=== PATIENT | male | born 1980 | race Caucasian/White ===

== ENCOUNTER 2017-01-03 20:24 | Emergency (ER) | payer SELFPAY ==
[~2017-01-03] VITALS: Ht 182.9 cm; Wt 104.0 kg
[2017-01-03 20:46] VITALS: BP 199/119
== END 2017-01-03 23:30 | disposition left against medical advice (07) ==
LOC: ER 20:24
DX: Z48.00 Encounter for change or removal of nonsurgical wound dressing (principal); Z53.21 Procedure and treatment not carried out due to patient leaving prior to being seen by health care provider

== ENCOUNTER 2017-12-03 12:33 | Inpatient (IN) | payer SELFPAY ==
[~2017-12-03] VITALS: Ht 165.1 cm; Wt 79.8 kg
[2017-12-03 15:16] LABS: CHLORIDE 94 mEq/L (98-107)
[2017-12-03 15:17] LABS: HEMATOCRIT. 40.2 % (42.0-52.0); HEMOGLOBIN. 13.5 g/dL (14.0-18.0); MEAN CORPUSCULAR HEMOGLOBIN 29.8 pg (28.0-32.0); MEAN CORPUSCULAR VOLUME 89.1 fL (80.0-94.0); MEAN PLATELET VOLUME 9.2 fl (7.4-10.4); PLATELET 229 x1000/uL (130-400); RED BLOOD CELL COUNT 4.52 mill/uL (4.7-6.1); RED CELL DISTRIBUTION WIDTH 14.8 % (11.6-14.6)
[2017-12-03 15:18] LABS: INR 0.9; PROTHROMBIN TIME 9.8 sec (9.4-11.6)
[2017-12-03] MEDS ORDERED: FUROSEMIDE 100MG/10ML VIAL IV STA (15:28)
[2017-12-03] MEDS ORDERED: ALBUTEROL (0.083%) 2.5MG/3ML NEB HHN ONE (15:30)
[2017-12-03] MEDS ORDERED: DEXTROSE 50% WATER 50ML SYRINGE IV ONE (15:30)
[2017-12-03] MEDS ORDERED: LORAZEPAM 2MG/ML CPJ IV ONE (15:30)
[2017-12-03] MEDS ORDERED: SODIUM POLYSTYRENE SULFONATE 15 G/60 ML BOT PO ONE (15:30)
[2017-12-03] MEDS ORDERED: INSULIN REGULAR (HUMULIN R) 300UNITS/3ML IV ONE (15:30)
[2017-12-03] MEDS ORDERED: SODIUM BICARBONATE 8.4% 1 MEQ/ML 50ML SYR IV ONE (15:30)
[2017-12-03] MEDS ORDERED: CALCIUM CHLORIDE 1GM/10ML SYR IV ONE (15:30)
[2017-12-03 16:16] LABS: PLATELET ESTIMATE NORMAL
[2017-12-03] MEDS ORDERED: VANCOMYCIN 1 G PREMIX 200 ML IV ONE ×2 (16:45→17:30)
[2017-12-03] MEDS ORDERED: PIPERACILLIN/TAZ 3.375G PREMIX 50 ML IV ONE ×2 (16:45→17:30)
[2017-12-03] MEDS ORDERED: NIFEDIPINE XL 30MG TAB PO ONE ×2 (17:15→17:30)
[2017-12-03] MEDS: INSULIN LISPRO 100 UNITS/ML SUBCUT SCH ×2 (18:20→21:00)
[2017-12-03 18:24] VITALS: BP 144/61
[2017-12-03] MEDS ORDERED: ONDANSETRON HCL 4MG/2ML VIAL IV PRN ×2 (18:30→19:30)
[2017-12-03] MEDS ORDERED: METOCLOPRAMIDE HCL 5MG TABLET PO PRN (18:30)
[2017-12-03] MEDS ORDERED: HYDRALAZINE 20MG/ML VIAL IV PRN (18:30)
[2017-12-03] MEDS ORDERED: DEXTROSE 50% WATER 50ML SYRINGE IV PRN ×2 (18:30→19:30)
[2017-12-03] MEDS ORDERED: BACL-141 PO (19:01)
[2017-12-03] MEDS ORDERED: NIFE30TA83 PO (19:01)
[2017-12-03] MEDS ORDERED: GABA100C PO (19:01)
[2017-12-03] MEDS ORDERED: TRAM50TA94 PO (19:01)
[2017-12-03] MEDS ORDERED: ALPR0.5T4 MT (19:01)
[2017-12-03] MEDS: PANTOPRAZOLE SODIUM 40 MG/VIAL IV SCH (19:25)
[2017-12-03] MEDS ORDERED: DIPHENHYDRAMINE 50MG/ML VIAL IV PRN ×2 (19:30→21:00)
[2017-12-03] MEDS ORDERED: TRAMADOL 50MG TABLET PO PRN (19:30)
[2017-12-03] MEDS ORDERED: IPRATROPIUM/ALBUTEROL 0.5-3(2.5)MG/3ML NEB INH PRN (19:30)
[2017-12-03] MEDS ORDERED: CLONIDINE 0.1MG TABLET PO PRN (19:30)
[2017-12-03] MEDS ORDERED: ACETAMINOPHEN 325MG TABLET PO PRN (19:30)
[2017-12-03 20:04] VITALS: BP 146/94
[2017-12-03] MEDS ORDERED: INSULIN LISPRO 100 UNITS/ML SUBCUT SCH (21:00)
[2017-12-03] MEDS ORDERED: ZOLPIDEM TARTRATE 5MG TABLET PO PRN (21:00)
[2017-12-03] MEDS ORDERED: BLOOD SUGAR DIAGNOSTIC STRIP TEST SCH (21:00)
[2017-12-03] MEDS: BLOOD SUGAR DIAGNOSTIC STRIP TEST SCH (21:00)
[2017-12-03 22:00] VITALS: BP 137/72
[2017-12-03] MEDS: SODIUM CHLORIDE 0.9% INJ 3ML FLUSH IVF SCH (22:00)
[2017-12-03] MEDS: LORAZEPAM 0.5MG TABLET PO PRN (23:03)
[2017-12-04] VITALS (12 sets, daily range): BP systolic 116–173; BP diastolic 77–108
[2017-12-04] MEDS: SODIUM CHLORIDE 0.9% INJ 3ML FLUSH IVF SCH ×2 (05:29→14:00)
[2017-12-04] MEDS: BLOOD SUGAR DIAGNOSTIC STRIP TEST SCH ×3 (05:52→17:11)
[2017-12-04 06:26] LABS: BASOPHILS % 1.2 % (0.0-2.0); EOSINOPHILS % 1.2 % (0.0-5.0); HEMATOCRIT. 39.2 % (42.0-52.0); HEMOGLOBIN. 12.9 g/dL (14.0-18.0); LYMPHOCYTES % 11.8 % (20.0-50.0); MEAN CORPUSCULAR HEMOGLOBIN 29.4 pg (28.0-32.0); MEAN CORPUSCULAR VOLUME 89.4 fL (80.0-94.0); MEAN PLATELET VOLUME 9.3 fl (7.4-10.4); MONOCYTES % 5.7 % (2.0-8.0); NEUTROPHILS % 80.1 % (40.0-76.0); PLATELET 215 x1000/uL (130-400); RED BLOOD CELL COUNT 4.38 mill/uL (4.7-6.1); RED CELL DISTRIBUTION WIDTH 14.7 % (11.6-14.6)
[2017-12-04 06:44] LABS: CHLORIDE 93 mEq/L (98-107)
[2017-12-04] MEDS: INSULIN LISPRO 100 UNITS/ML SUBCUT SCH ×3 (06:50→17:20)
[2017-12-04 06:56] LABS: PHOSPHORUS 6.4 mg/dL (2.5-4.9)
[2017-12-04] MEDS: PANTOPRAZOLE SODIUM 40 MG/VIAL IV SCH (08:33)
[2017-12-04] MEDS ORDERED: NIFEDIPINE XL 30MG TAB PO SCH (09:00)
[2017-12-04] MEDS: LORAZEPAM 0.5MG TABLET PO PRN (17:43)
== END 2017-12-04 19:50 | disposition home or self-care (01) | DRG 425 ==
LOC: ER 12:35 → ENRESERV 16:31 → 3WST 16:33 → EDBEDREQ 16:36 → EDBEDREQTM 16:36
PROVIDERS: ADMIT Internal Medicine; ATTEND Internal Medicine
PROC: 5A1D70Z Performance of Urinary Filtration, Intermittent, Less than 6 Hours Per Day (ICD-10-PCS; principal; 2017-12-03)
DX: E87.5 Hyperkalemia (principal); G92 Toxic encephalopathy; N25.81 Secondary hyperparathyroidism of renal origin; E87.0 Hyperosmolality and hypernatremia; I12.0 Hypertensive chronic kidney disease with stage 5 chronic kidney disease or end stage renal disease; N18.6 End stage renal disease; D64.9 Anemia, unspecified; D72.829 Elevated white blood cell count, unspecified; G89.29 Other chronic pain; E11.22 Type 2 diabetes mellitus with diabetic chronic kidney disease; E83.39 Other disorders of phosphorus metabolism; E11.65 Type 2 diabetes mellitus with hyperglycemia; E87.1 Hypo-osmolality and hyponatremia; F41.1 Generalized anxiety disorder; Z82.3 Family history of stroke; Z82.49 Family history of ischemic heart disease and other diseases of the circulatory system; Z99.2 Dependence on renal dialysis; Z83.3 Family history of diabetes mellitus; Z79.899 Other long term (current) drug therapy
CPT/HCPCS: 36415; 71045; 80053; 82962; 83605; 84100; 85025; 85610; 87040; 93005; 93970; 96374; 96375; 99291; C9113; J1200; J1815; J1940; J2060; J2543; J3370; J3490; J7030

== ENCOUNTER 2018-07-16 09:50 | Inpatient (IN) | payer BC ==
[2018-07-16] VITALS (29 sets, daily range): BP systolic 79–176; BP diastolic 40–128
[~2018-07-16] VITALS: Ht 175.3 cm; Wt 110.2 kg
[~2018-07-16 09:50] MED LIST: ALPR0.5T4 MT; GABA100C PO; NIFE30TA83 PO; TRAM50TA94 PO
[2018-07-16 10:20] LABS: BASOPHILS % 0.9 % (0.0-2.0); EOSINOPHILS % 12.8 % (0.0-5.0); HEMATOCRIT. 38.9 % (42.0-52.0); HEMOGLOBIN. 13.1 g/dL (14.0-18.0); LYMPHOCYTES % 27.2 % (20.0-50.0); MEAN CORPUSCULAR HEMOGLOBIN 30.6 pg (28.0-32.0); MEAN CORPUSCULAR VOLUME 91.1 fL (80.0-94.0); MEAN PLATELET VOLUME 7.9 fl (7.4-10.4); NEUTROPHILS % 52.1 % (40.0-76.0); PLATELET 272 x1000/uL (130-400); RED BLOOD CELL COUNT 4.27 mill/uL (4.7-6.1); RED CELL DISTRIBUTION WIDTH 15.4 % (11.6-14.6)
[2018-07-16 10:24] LABS: CHLORIDE 102 mEq/L (98-107)
[2018-07-16 10:25] LABS: PROTHROMBIN TIME 10.3 sec (9.1-11.1)
[2018-07-16 10:28] LABS: ETHANOL BLOOD < 10 mg/dL
[2018-07-16 10:31] LABS: LDL CHOLESTEROL 103 mg/dL (5-100)
[2018-07-16] MEDS ORDERED: LABETALOL 5MG/ML SYR 20 MG/4 ML SYRINGE IV ONE (10:45)
[2018-07-16] MEDS ORDERED: ETOMIDATE 2MG/ML 10ML VIAL IV ONE (10:45)
[2018-07-16] MEDS ORDERED: PROPOFOL 10MG/ML 100ML 100 ML IV ONE (10:45)
[2018-07-16] MEDS ORDERED: SUCCINYLCHOLINE CHLORIDE 200MG/10ML IV ONE (10:45)
[2018-07-16 11:21] LABS: CLARITY URINE CLEAR (CLEAR); COLOR URINE YELLOW (YELLOW); KETONES URINE NEGATIVE (NEGATIVE); LEUKOCYTE ESTERASE URINE NEGATIVE (NEGATIVE); NITRITE URINE NEGATIVE (NEGATIVE); OCCULT BLOOD URINE TRACE (NEGATIVE); PH URINE 7.5 (4.5-8.0); PROTEIN URINE 2+ (NEGATIVE); SPECIFIC GRAVITY URINE 1.009 (1.005-1.030); UROBILINOGEN URINE 0.2 E.U./dL (0.2-1.0)
[2018-07-16 11:38] LABS: *AMPHETAMINES SCREEN URINE NEGATIVE (NEGATIVE); *BARBITURATES SCREEN URINE NEGATIVE (NEGATIVE); *BENZODIAZEPINES SCREEN URINE NEGATIVE (NEGATIVE); *COCAINE SCREEN URINE NEGATIVE (NEGATIVE); METHADONE URINE SCREEN NEGATIVE (NEGATIVE); OPIATES URINE SCREEN NEGATIVE (NEGATIVE)
[2018-07-16 11:39] LABS: CANNABINOID URINE SCREEN NEGATIVE (NEGATIVE); PHENCYCLIDINE URINE SCREEN NEGATIVE (NEGATIVE)
[2018-07-16] MEDS ORDERED: NICARDIPINE 40MG/200ML PREMIX 200 ML IV ONE (11:54)
[2018-07-16] MEDS ORDERED: ACETAMINOPHEN 650MG SUPP PR PRN ×2 (12:00→16:15)
[2018-07-16] MEDS ORDERED: IPRATROPIUM/ALBUTEROL 0.5-3(2.5)MG/3ML NEB INH PRN ×2 (12:00→16:15)
[2018-07-16] MEDS ORDERED: ONDANSETRON HCL 4MG/2ML INJ IV PRN (12:00)
[2018-07-16] MEDS ORDERED: DOCUSATE SODIUM 100MG CAPSULE PO PRN (12:00)
[2018-07-16] MEDS ORDERED: NICARDIPINE 100 MG in SODIUM CHLORIDE 0.9% 60 ML IV PRN ×2 (12:00→17:15)
[2018-07-16 12:16] LABS: BG BASE EXCESS -1.1 mmol/L (-2.0-2.0); BG CARBOXYHEMOGLOBIN 0.3 % (0.5-1.5); BG DEOXYHEMOGLOBIN 1.1 % (0.0-5.0); BG FRACTION INSPIRED OXYGEN 100; BG HCO3 ACT 23.9 mmol/L (22.0-26.0); BG METHEMOGLOBIN 0.3 % (0.0-1.5); BG OXYGEN SATURATION 98.9 % (92.0-98.5); BG OXYHEMOGLOBIN 98.3 % (94.0-97.0); BG PCO2 41.1 mmHg (35.0-45.0); BG PH 7.383 (7.350-7.450); BG PO2 314.9 mmHg (75.0-100.0); BG SAMPLE SITE RIGHT RADIAL; BG TIDAL VOLUME(mL) 500 mL; BG TOTAL HEMOGLOBIN 12.5 g/dL (12.0-18.0); BG VENT MODE VENT - A/C; BG VENT RATE 16 set
[2018-07-16] MEDS ORDERED: DEXTROSE 50% WATER 50ML SYRINGE IV PRN (16:15)
[2018-07-16] MEDS ORDERED: GUAIFENESIN 200MG/10ML SUGAR FREE UDC PO PRN (16:15)
[2018-07-16] MEDS: DEXT 5%/LACTATED RINGERS 1,000 ML IV SCH (17:27)
[2018-07-16] MEDS: INSULIN LISPRO 100 UNITS/ML SUBCUT SCH (17:52)
[2018-07-16] MEDS: BLOOD SUGAR DIAGNOSTIC STRIP TEST SCH (17:52)
[2018-07-16] MEDS: DEXAMETHASONE 10 MG/ML VIAL IV SCH (17:53)
[2018-07-16] MEDS: PIPERACILLIN/TAZ 2.25G PREMIX 50 ML IV SCH (18:30)
[2018-07-16] MEDS ORDERED: VANCOMYCIN 1500MG in DEXTROSE 5% WATER 250ML IV NR (20:00)
[2018-07-16] MEDS: IPRATROPIUM/ALBUTEROL 0.5-3(2.5)MG/3ML NEB INH SCH (20:16)
[2018-07-16] MEDS: LEVETIRACETAM 500 MG in SODIUM CHLORIDE 0.9% 100 ML IV SCH (20:53)
[2018-07-16] MEDS: NICARDIPINE 100 MG in SODIUM CHLORIDE 0.9% 60 ML IV PRN (22:23)
[2018-07-16 23:39] LABS: BG BASE EXCESS -1.6 mmol/L (-2.0-2.0); BG CARBOXYHEMOGLOBIN 0.5 % (0.5-1.5); BG DEOXYHEMOGLOBIN 4.8 % (0.0-5.0); BG FRACTION INSPIRED OXYGEN 40; BG HCO3 ACT 23.9 mmol/L (22.0-26.0); BG METHEMOGLOBIN 0.3 % (0.0-1.5); BG OXYGEN SATURATION 95.2 % (92.0-98.5); BG OXYHEMOGLOBIN 94.4 % (94.0-97.0); BG PCO2 42.9 mmHg (35.0-45.0); BG PH 7.363 (7.350-7.450); BG PO2 77.5 mmHg (75.0-100.0); BG SAMPLE SITE RIGHT BRACHIAL; BG TIDAL VOLUME(mL) 500 mL; BG TOTAL HEMOGLOBIN 12.7 g/dL (12.0-18.0); BG VENT MODE VENT - A/C; BG VENT RATE 16 set
[2018-07-17] VITALS (81 sets, daily range): BP systolic 105–138; BP diastolic 47–85
[2018-07-17] MEDS: BLOOD SUGAR DIAGNOSTIC STRIP TEST SCH ×5 (00:11→23:31)
[2018-07-17] MEDS: DEXAMETHASONE 10 MG/ML VIAL IV SCH ×5 (00:24→23:40)
[2018-07-17] MEDS: INSULIN LISPRO 100 UNITS/ML SUBCUT SCH ×5 (00:24→23:39)
[2018-07-17] MEDS: IPRATROPIUM/ALBUTEROL 0.5-3(2.5)MG/3ML NEB INH SCH ×4 (01:58→20:41)
[2018-07-17 05:26] LABS: CHLORIDE 100 mEq/L (98-107)
[2018-07-17 05:28] LABS: HEMATOCRIT. 38.3 % (42.0-52.0); HEMOGLOBIN. 12.6 g/dL (14.0-18.0); MEAN CORPUSCULAR HEMOGLOBIN 30.2 pg (28.0-32.0); MEAN CORPUSCULAR VOLUME 91.3 fL (80.0-94.0); MEAN PLATELET VOLUME 8.5 fl (7.4-10.4); PLATELET 269 x1000/uL (130-400); RED BLOOD CELL COUNT 4.19 mill/uL (4.7-6.1); RED CELL DISTRIBUTION WIDTH 15.6 % (11.6-14.6)
[2018-07-17 05:34] LABS: LDL CHOLESTEROL 102 mg/dL (5-100)
[2018-07-17 05:35] LABS: HDL CHOLESTEROL 52 mg/dL (40-59); T4 FREE 0.87 ng/dL (0.76-1.46)
[2018-07-17] MEDS: PIPERACILLIN/TAZ 2.25G PREMIX 50 ML IV SCH ×2 (06:51→19:01)
[2018-07-17 07:56] LABS: BG BASE EXCESS -3.3 mmol/L (-2.0-2.0); BG CARBOXYHEMOGLOBIN 0.8 % (0.5-1.5); BG DEOXYHEMOGLOBIN 3.8 % (0.0-5.0); BG HCO3 ACT 21.9 mmol/L (22.0-26.0); BG METHEMOGLOBIN 0.3 % (0.0-1.5); BG OXYGEN SATURATION 96.2 % (92.0-98.5); BG OXYHEMOGLOBIN 95.1 % (94.0-97.0); BG PCO2 39.6 mmHg (35.0-45.0); BG SAMPLE SITE RIGHT RADIAL; BG TIDAL VOLUME(mL) 500 mL; BG TOTAL HEMOGLOBIN 12.7 g/dL (12.0-18.0); BG VENT MODE VENT - A/C; BG VENT RATE 16 set
[2018-07-17] MEDS ORDERED: FURO-151 MT (08:16)
[2018-07-17] MEDS ORDERED: GLIP5TAB12 MT (08:16)
[2018-07-17] MEDS ORDERED: CALC667C MT (08:16)
[2018-07-17 08:29] LABS: PLATELET ESTIMATE NORMAL
[2018-07-17] MEDS: LEVETIRACETAM 500 MG in SODIUM CHLORIDE 0.9% 100 ML IV SCH ×3 (09:22→20:54)
[2018-07-17] MEDS: PANTOPRAZOLE SODIUM 40 MG/VIAL IV SCH (09:22)
[2018-07-17] MEDS: NICARDIPINE 100 MG in SODIUM CHLORIDE 0.9% 60 ML IV PRN ×2 (09:45→23:22)
[2018-07-17] MEDS ORDERED: VANCOMYCIN 500 MG PREMIX 100 ML IV SCH (10:00)
[2018-07-17] MEDS ORDERED: LIDOCAINE HCL/PF 1% 2ML VIAL ONE (10:56)
[2018-07-17] MEDS: DEXT 5%/LACTATED RINGERS 1,000 ML IV SCH (11:57)
[2018-07-17] MEDS: MORPHINE SULFATE 4 MG/ML CPJ (NOT FOR IM USE) IV PRN (13:29)
[2018-07-17] MEDS ORDERED: MORPHINE SULFATE 10 MG/ML CPJ IV NR (14:15)
[2018-07-17] MEDS ORDERED: PIPERACILLIN/TAZ 2.25G PREMIX 50 ML IV SCH (18:00)
[2018-07-18] VITALS (89 sets, daily range): BP systolic 114–142; BP diastolic 53–92
[2018-07-18] MEDS: IPRATROPIUM/ALBUTEROL 0.5-3(2.5)MG/3ML NEB INH SCH ×4 (01:13→20:57)
[2018-07-18] MEDS: DEXAMETHASONE 10 MG/ML VIAL IV SCH ×4 (06:02→23:34)
[2018-07-18] MEDS: BLOOD SUGAR DIAGNOSTIC STRIP TEST SCH ×4 (06:03→23:34)
[2018-07-18] MEDS: LEVETIRACETAM 500 MG in SODIUM CHLORIDE 0.9% 100 ML IV SCH ×2 (06:03→20:41)
[2018-07-18] MEDS: INSULIN LISPRO 100 UNITS/ML SUBCUT SCH ×4 (06:26→23:39)
[2018-07-18] MEDS: PIPERACILLIN/TAZ 2.25G PREMIX 50 ML IV SCH ×2 (07:03→18:22)
[2018-07-18] MEDS: PANTOPRAZOLE SODIUM 40 MG/VIAL IV SCH (11:44)
[2018-07-18] MEDS: DEXT 5%/LACTATED RINGERS 1,000 ML IV SCH (11:45)
[2018-07-18] MEDS ORDERED: INSULIN GLARGINE UD 100 UNITS/ML SYR SUBCUT NR (13:30)
[2018-07-18 13:47] LABS: HEMATOCRIT 35.2 % (42.0-52.0); HEMOGLOBIN 11.8 g/dL (14.0-18.0); MEAN CORPUSCULAR HEMOGLOBIN 30.6 pg (28.0-32.0); MEAN CORPUSCULAR VOLUME 91.4 fL (80.0-94.0); PLATELET 271 x1000/uL (130-400); RED BLOOD CELL COUNT 3.85 mill/uL (4.7-6.1); RED CELL DISTRIBUTION WIDTH 15.5 % (11.6-14.6)
[2018-07-18] MEDS: NICARDIPINE 100 MG in SODIUM CHLORIDE 0.9% 60 ML IV PRN (15:35)
[2018-07-19] VITALS (89 sets, daily range): BP systolic 58–141; BP diastolic 32–76
[2018-07-19] MEDS: NICARDIPINE 100 MG in SODIUM CHLORIDE 0.9% 60 ML IV PRN ×2 (01:23→11:21)
[2018-07-19] MEDS: IPRATROPIUM/ALBUTEROL 0.5-3(2.5)MG/3ML NEB INH SCH ×4 (01:58→20:52)
[2018-07-19] MEDS: BLOOD SUGAR DIAGNOSTIC STRIP TEST SCH ×3 (06:20→18:17)
[2018-07-19] MEDS: INSULIN LISPRO 100 UNITS/ML SUBCUT SCH ×3 (06:25→18:17)
[2018-07-19] MEDS: DEXAMETHASONE 10 MG/ML VIAL IV SCH ×2 (06:25→12:56)
[2018-07-19] MEDS: PIPERACILLIN/TAZ 2.25G PREMIX 50 ML IV SCH ×2 (06:25→18:17)
[2018-07-19 06:26] LABS: HEMATOCRIT 35.8 % (42.0-52.0); HEMOGLOBIN 11.7 g/dL (14.0-18.0); MEAN CORPUSCULAR HEMOGLOBIN 30.1 pg (28.0-32.0); MEAN CORPUSCULAR VOLUME 92.3 fL (80.0-94.0); PLATELET 291 x1000/uL (130-400); RED BLOOD CELL COUNT 3.88 mill/uL (4.7-6.1); RED CELL DISTRIBUTION WIDTH 15.5 % (11.6-14.6)
[2018-07-19] MEDS: DEXT 5%/LACTATED RINGERS 1,000 ML IV SCH ×2 (06:26→20:58)
[2018-07-19] MEDS: LEVETIRACETAM 500 MG in SODIUM CHLORIDE 0.9% 100 ML IV SCH ×2 (11:20→20:57)
[2018-07-19] MEDS: PANTOPRAZOLE SODIUM 40 MG/VIAL IV SCH (11:20)
[2018-07-19] MEDS: INSULIN GLARGINE UD 100 UNITS/ML SYR SUBCUT SCH (11:22)
[2018-07-19] MEDS: DEXAMETHASONE 4MG/ML 1ML VIAL IV SCH (18:40)
[2018-07-20] VITALS (99 sets, daily range): BP systolic 113–157; BP diastolic 52–94
[2018-07-20] MEDS: DEXAMETHASONE 4MG/ML 1ML VIAL IV SCH ×3 (00:09→18:30)
[2018-07-20] MEDS: BLOOD SUGAR DIAGNOSTIC STRIP TEST SCH ×7 (00:11→23:17)
[2018-07-20] MEDS: INSULIN LISPRO 100 UNITS/ML SUBCUT SCH ×5 (00:11→23:19)
[2018-07-20] MEDS: IPRATROPIUM/ALBUTEROL 0.5-3(2.5)MG/3ML NEB INH SCH ×4 (01:56→20:29)
[2018-07-20] MEDS: DEXT 5%/LACTATED RINGERS 1,000 ML IV SCH ×2 (05:03→21:09)
[2018-07-20 05:55] LABS: HEMOGLOBIN. 11.7 g/dL (14.0-18.0); MEAN CORPUSCULAR HEMOGLOBIN 30.2 pg (28.0-32.0); MEAN CORPUSCULAR VOLUME 90.5 fL (80.0-94.0); MEAN PLATELET VOLUME 9.4 fl (7.4-10.4); PLATELET 281 x1000/uL (130-400); RED BLOOD CELL COUNT 3.86 mill/uL (4.7-6.1); RED CELL DISTRIBUTION WIDTH 14.8 % (11.6-14.6)
[2018-07-20] MEDS: PIPERACILLIN/TAZ 2.25G PREMIX 50 ML IV SCH ×2 (06:00→18:29)
[2018-07-20 08:43] LABS: PLATELET ESTIMATE NORMAL
[2018-07-20] MEDS: LEVETIRACETAM 500 MG in SODIUM CHLORIDE 0.9% 100 ML IV SCH ×2 (09:50→21:09)
[2018-07-20] MEDS: PANTOPRAZOLE SODIUM 40 MG/VIAL IV SCH (09:50)
[2018-07-20] MEDS: INSULIN GLARGINE UD 100 UNITS/ML SYR SUBCUT SCH ×2 (09:50→21:12)
[2018-07-20] MEDS ORDERED: DEXTROSE 50% WATER 50ML SYRINGE IV PRN (11:30)
[2018-07-20] MEDS: NICARDIPINE 100 MG in SODIUM CHLORIDE 0.9% 60 ML IV PRN (14:32)
[2018-07-21] VITALS (96 sets, daily range): BP systolic 99–161; BP diastolic 56–85
[2018-07-21] MEDS: IPRATROPIUM/ALBUTEROL 0.5-3(2.5)MG/3ML NEB INH SCH ×4 (02:03→20:12)
[2018-07-21] MEDS: BLOOD SUGAR DIAGNOSTIC STRIP TEST SCH ×3 (05:48→18:00)
[2018-07-21] MEDS: DEXAMETHASONE 4MG/ML 1ML VIAL IV SCH ×2 (05:48→11:57)
[2018-07-21 05:50] LABS: HEMATOCRIT 34.6 % (42.0-52.0); HEMOGLOBIN 11.5 g/dL (14.0-18.0); MEAN CORPUSCULAR HEMOGLOBIN 30.3 pg (28.0-32.0); MEAN CORPUSCULAR VOLUME 91.1 fL (80.0-94.0); PLATELET 291 x1000/uL (130-400); RED BLOOD CELL COUNT 3.79 mill/uL (4.7-6.1)
[2018-07-21] MEDS: PIPERACILLIN/TAZ 2.25G PREMIX 50 ML IV SCH (06:08)
[2018-07-21] MEDS: INSULIN LISPRO 100 UNITS/ML SUBCUT SCH ×3 (06:09→19:13)
[2018-07-21] MEDS: NICARDIPINE 100 MG in SODIUM CHLORIDE 0.9% 60 ML IV PRN ×2 (06:35→20:11)
[2018-07-21 07:54] LABS: BG BASE EXCESS -0.5 mmol/L (-2.0-2.0); BG CARBOXYHEMOGLOBIN 0.4 % (0.5-1.5); BG DEOXYHEMOGLOBIN 2.2 % (0.0-5.0); BG FRACTION INSPIRED OXYGEN 40; BG HCO3 ACT 21.2 mmol/L (22.0-26.0); BG METHEMOGLOBIN 0.3 % (0.0-1.5); BG OXYGEN SATURATION 97.8 % (92.0-98.5); BG OXYHEMOGLOBIN 97.1 % (94.0-97.0); BG PCO2 26.8 mmHg (35.0-45.0); BG PH 7.516 (7.350-7.450); BG PO2 108.2 mmHg (75.0-100.0); BG SAMPLE SITE RIGHT RADIAL; BG TIDAL VOLUME(mL) 500 mL; BG TOTAL HEMOGLOBIN 12.4 g/dL (12.0-18.0); BG VENT MODE VENT - A/C; BG VENT RATE 16 set
[2018-07-21] MEDS: PANTOPRAZOLE SODIUM 40 MG/VIAL IV SCH (11:38)
[2018-07-21] MEDS: MORPHINE SULFATE 4 MG/ML CPJ (NOT FOR IM USE) IV PRN (11:39)
[2018-07-21] MEDS: LEVETIRACETAM 500 MG in SODIUM CHLORIDE 0.9% 100 ML IV SCH ×2 (11:40→21:23)
[2018-07-21] MEDS: INSULIN GLARGINE UD 100 UNITS/ML SYR SUBCUT SCH ×2 (11:59→21:42)
[2018-07-21] MEDS ORDERED: LEVOFLOXACIN 500MG PREMIX 100 ML IV SCH (12:00)
[2018-07-21] MEDS: AMLODIPINE 5MG TABLET PO SCH (12:26)
[2018-07-22] VITALS (94 sets, daily range): BP systolic 105–142; BP diastolic 48–78
[2018-07-22] MEDS: BLOOD SUGAR DIAGNOSTIC STRIP TEST SCH ×4 (00:39→18:00)
[2018-07-22] MEDS: INSULIN LISPRO 100 UNITS/ML SUBCUT SCH ×4 (00:43→18:20)
[2018-07-22] MEDS: IPRATROPIUM/ALBUTEROL 0.5-3(2.5)MG/3ML NEB INH SCH ×4 (01:47→20:59)
[2018-07-22] MEDS: NICARDIPINE 100 MG in SODIUM CHLORIDE 0.9% 60 ML IV PRN ×2 (02:31→11:00)
[2018-07-22] MEDS: DEXAMETHASONE 4MG/ML 1ML VIAL IV SCH ×2 (05:25→18:18)
[2018-07-22 05:45] LABS: HEMATOCRIT 36.3 % (42.0-52.0); HEMOGLOBIN 12.2 g/dL (14.0-18.0); MEAN CORPUSCULAR HEMOGLOBIN 30.4 pg (28.0-32.0); MEAN CORPUSCULAR VOLUME 90.3 fL (80.0-94.0); PLATELET 304 x1000/uL (130-400); RED BLOOD CELL COUNT 4.02 mill/uL (4.7-6.1)
[2018-07-22 07:38] LABS: BG BASE EXCESS 0.4 mmol/L (-2.0-2.0); BG CARBOXYHEMOGLOBIN 0.5 % (0.5-1.5); BG DEOXYHEMOGLOBIN 3.4 % (0.0-5.0); BG FRACTION INSPIRED OXYGEN 40; BG HCO3 ACT 23.9 mmol/L (22.0-26.0); BG OXYGEN SATURATION 96.6 % (92.0-98.5); BG OXYHEMOGLOBIN 96.1 % (94.0-97.0); BG PCO2 34.7 mmHg (35.0-45.0); BG PH 7.456 (7.350-7.450); BG PO2 92.7 mmHg (75.0-100.0); BG SAMPLE SITE LEFT RADIAL; BG TIDAL VOLUME(mL) 500 mL; BG TOTAL HEMOGLOBIN 12.6 g/dL (12.0-18.0); BG VENT MODE VENT - A/C; BG VENT RATE 12 set
[2018-07-22] MEDS: ACETAMINOPHEN 325MG TABLET PO PRN ×2 (08:56→21:16)
[2018-07-22] MEDS: DOCUSATE SODIUM SUGAR FREE 100MG/10ML UDC NG PRN (08:56)
[2018-07-22] MEDS: PANTOPRAZOLE SODIUM 40 MG/VIAL IV SCH (08:56)
[2018-07-22] MEDS: AMLODIPINE 5MG TABLET PO SCH (08:57)
[2018-07-22] MEDS: LEVETIRACETAM 500 MG in SODIUM CHLORIDE 0.9% 100 ML IV SCH ×2 (08:59→21:17)
[2018-07-22] MEDS: INSULIN GLARGINE UD 100 UNITS/ML SYR SUBCUT SCH ×2 (09:19→21:17)
[2018-07-23] VITALS (96 sets, daily range): BP systolic 122–157; BP diastolic 67–94
[2018-07-23] MEDS: BLOOD SUGAR DIAGNOSTIC STRIP TEST SCH ×5 (00:12→23:14)
[2018-07-23] MEDS: INSULIN LISPRO 100 UNITS/ML SUBCUT SCH ×5 (00:16→23:18)
[2018-07-23] MEDS: IPRATROPIUM/ALBUTEROL 0.5-3(2.5)MG/3ML NEB INH SCH ×4 (01:47→20:49)
[2018-07-23] MEDS: DOCUSATE SODIUM SUGAR FREE 100MG/10ML UDC NG PRN (05:55)
[2018-07-23] MEDS: DEXAMETHASONE 4MG/ML 1ML VIAL IV SCH ×2 (05:55→18:30)
[2018-07-23] MEDS: LEVETIRACETAM 500 MG in SODIUM CHLORIDE 0.9% 100 ML IV SCH ×2 (09:15→21:25)
[2018-07-23] MEDS: PANTOPRAZOLE SODIUM 40 MG/VIAL IV SCH (09:15)
[2018-07-23] MEDS: AMLODIPINE 5MG TABLET PO SCH (09:15)
[2018-07-23] MEDS: ACETAMINOPHEN 325MG TABLET PO PRN (09:15)
[2018-07-23 09:19] LABS: HEMATOCRIT. 37.2 % (42.0-52.0); HEMOGLOBIN. 12.2 g/dL (14.0-18.0); MEAN CORPUSCULAR HEMOGLOBIN 30.1 pg (28.0-32.0); MEAN CORPUSCULAR VOLUME 91.4 fL (80.0-94.0); MEAN PLATELET VOLUME 9.3 fl (7.4-10.4); PLATELET 280 x1000/uL (130-400); RED BLOOD CELL COUNT 4.07 mill/uL (4.7-6.1); RED CELL DISTRIBUTION WIDTH 14.7 % (11.6-14.6)
[2018-07-23 09:56] LABS: PLATELET ESTIMATE NORMAL
[2018-07-23] MEDS: LEVOFLOXACIN 250MG PREMIX 50 ML IV SCH (10:30)
[2018-07-23] MEDS: INSULIN GLARGINE UD 100 UNITS/ML SYR SUBCUT SCH ×2 (12:02→21:26)
[2018-07-23] MEDS: CLONIDINE 0.1MG TABLET PO PRN (16:19)
[2018-07-23] MEDS ORDERED: LACTULOSE 20G/30ML UDC NG PRN (17:30)
[2018-07-23] MEDS: AMLODIPINE 5MG TABLET NG SCH (21:25)
[2018-07-24] VITALS (100 sets, daily range): BP systolic 116–147; BP diastolic 61–88
[2018-07-24] MEDS: IPRATROPIUM/ALBUTEROL 0.5-3(2.5)MG/3ML NEB INH SCH ×4 (02:04→21:06)
[2018-07-24] MEDS: NICARDIPINE 100 MG in SODIUM CHLORIDE 0.9% 60 ML IV PRN ×2 (03:53→16:57)
[2018-07-24] MEDS: BLOOD SUGAR DIAGNOSTIC STRIP TEST SCH ×4 (06:36→23:09)
[2018-07-24] MEDS: DEXAMETHASONE 4MG/ML 1ML VIAL IV SCH (06:38)
[2018-07-24] MEDS: INSULIN LISPRO 100 UNITS/ML SUBCUT SCH ×4 (06:39→23:09)
[2018-07-24] MEDS: LEVETIRACETAM 500 MG in SODIUM CHLORIDE 0.9% 100 ML IV SCH ×2 (09:05→21:20)
[2018-07-24] MEDS: PANTOPRAZOLE SODIUM 40 MG/VIAL IV SCH (09:53)
[2018-07-24] MEDS: AMLODIPINE 5MG TABLET NG SCH ×2 (11:03→21:20)
[2018-07-24] MEDS: INSULIN GLARGINE UD 100 UNITS/ML SYR SUBCUT SCH ×2 (11:04→23:10)
[2018-07-24 12:50] LABS: HEMATOCRIT. 36.3 % (42.0-52.0); HEMOGLOBIN. 12.2 g/dL (14.0-18.0); MEAN CORPUSCULAR HEMOGLOBIN 30.4 pg (28.0-32.0); MEAN CORPUSCULAR VOLUME 90.2 fL (80.0-94.0); MEAN PLATELET VOLUME 9.3 fl (7.4-10.4); PLATELET 278 x1000/uL (130-400); RED BLOOD CELL COUNT 4.02 mill/uL (4.7-6.1); RED CELL DISTRIBUTION WIDTH 14.8 % (11.6-14.6)
[2018-07-24 13:41] LABS: PLATELET ESTIMATE NORMAL
[2018-07-24] MEDS: HYDRALAZINE HCL 25MG TABLET PO SCH (21:20)
[2018-07-25] VITALS (95 sets, daily range): BP systolic 109–152; BP diastolic 33–97
[2018-07-25] MEDS: IPRATROPIUM/ALBUTEROL 0.5-3(2.5)MG/3ML NEB INH SCH ×4 (01:51→20:28)
[2018-07-25 05:40] LABS: BASOPHILS % 0.3 % (0.0-2.0); EOSINOPHILS % 0.3 % (0.0-5.0); HEMATOCRIT. 36.8 % (42.0-52.0); HEMOGLOBIN. 12.4 g/dL (14.0-18.0); LYMPHOCYTES % 11.9 % (20.0-50.0); MEAN CORPUSCULAR HEMOGLOBIN 30.2 pg (28.0-32.0); MEAN CORPUSCULAR VOLUME 89.6 fL (80.0-94.0); MEAN PLATELET VOLUME 9.5 fl (7.4-10.4); NEUTROPHILS % 79.5 % (40.0-76.0); PLATELET 292 x1000/uL (130-400); RED CELL DISTRIBUTION WIDTH 14.8 % (11.6-14.6)
[2018-07-25] MEDS: INSULIN LISPRO 100 UNITS/ML SUBCUT SCH ×4 (06:00→23:11)
[2018-07-25] MEDS: BLOOD SUGAR DIAGNOSTIC STRIP TEST SCH ×4 (06:09→23:11)
[2018-07-25] MEDS: HYDRALAZINE HCL 25MG TABLET PO SCH ×3 (06:18→21:06)
[2018-07-25] MEDS: PANTOPRAZOLE SODIUM 40 MG/VIAL IV SCH (09:18)
[2018-07-25] MEDS: LEVETIRACETAM 500 MG in SODIUM CHLORIDE 0.9% 100 ML IV SCH ×2 (09:19→21:06)
[2018-07-25] MEDS: DEXAMETHASONE 4MG/ML 1ML VIAL IV SCH (09:19)
[2018-07-25] MEDS: AMLODIPINE 5MG TABLET NG SCH ×2 (10:49→21:07)
[2018-07-25] MEDS: LEVOFLOXACIN 250MG PREMIX 50 ML IV SCH (10:49)
[2018-07-25] MEDS: INSULIN GLARGINE UD 100 UNITS/ML SYR SUBCUT SCH ×2 (11:34→23:11)
[2018-07-26] VITALS (53 sets, daily range): BP systolic 116–161; BP diastolic 63–90
[2018-07-26] MEDS: IPRATROPIUM/ALBUTEROL 0.5-3(2.5)MG/3ML NEB INH SCH ×4 (02:04→20:41)
[2018-07-26] MEDS: INSULIN LISPRO 100 UNITS/ML SUBCUT SCH ×3 (06:00→18:22)
[2018-07-26] MEDS: BLOOD SUGAR DIAGNOSTIC STRIP TEST SCH ×3 (06:10→18:14)
[2018-07-26 06:14] LABS: HEMATOCRIT 35.2 % (42.0-52.0); HEMOGLOBIN 11.6 g/dL (14.0-18.0); MEAN CORPUSCULAR HEMOGLOBIN 29.8 pg (28.0-32.0); MEAN CORPUSCULAR VOLUME 90.5 fL (80.0-94.0); PLATELET 259 x1000/uL (130-400); RED BLOOD CELL COUNT 3.88 mill/uL (4.7-6.1); RED CELL DISTRIBUTION WIDTH 14.6 % (11.6-14.6)
[2018-07-26] MEDS: HYDRALAZINE HCL 25MG TABLET PO SCH ×4 (06:14→21:53)
[2018-07-26] MEDS: PANTOPRAZOLE SODIUM 40 MG/VIAL IV SCH (08:05)
[2018-07-26] MEDS: AMLODIPINE 5MG TABLET NG SCH ×2 (08:05→21:40)
[2018-07-26] MEDS: DEXAMETHASONE 4MG/ML 1ML VIAL IV SCH (08:05)
[2018-07-26 08:41] LABS: BG CARBOXYHEMOGLOBIN 0.4 % (0.5-1.5); BG DEOXYHEMOGLOBIN 2.7 % (0.0-5.0); BG FRACTION INSPIRED OXYGEN 40; BG HCO3 ACT 21.9 mmol/L (22.0-26.0); BG METHEMOGLOBIN 0.1 % (0.0-1.5); BG OXYGEN SATURATION 97.3 % (92.0-98.5); BG OXYHEMOGLOBIN 96.8 % (94.0-97.0); BG PCO2 31.2 mmHg (35.0-45.0); BG PH 7.465 (7.350-7.450); BG PO2 104.7 mmHg (75.0-100.0); BG SAMPLE SITE RIGHT RADIAL; BG TIDAL VOLUME(mL) 500 mL; BG VENT MODE VENT - A/C; BG VENT RATE 12 set
[2018-07-26] MEDS: INSULIN GLARGINE UD 100 UNITS/ML SYR SUBCUT SCH (10:00)
[2018-07-26] MEDS: LEVETIRACETAM 500MG TABLET PO SCH (21:39)
[2018-07-27] VITALS (11 sets, daily range): BP systolic 127–158; BP diastolic 76–98
[2018-07-27] MEDS: IPRATROPIUM/ALBUTEROL 0.5-3(2.5)MG/3ML NEB INH SCH ×4 (01:58→21:07)
[2018-07-27] MEDS: BLOOD SUGAR DIAGNOSTIC STRIP TEST SCH ×5 (06:00→21:46)
[2018-07-27] MEDS: INSULIN LISPRO 100 UNITS/ML SUBCUT SCH ×5 (06:00→21:48)
[2018-07-27 06:46] LABS: HEMATOCRIT 35.6 % (42.0-52.0); HEMOGLOBIN 11.9 g/dL (14.0-18.0); MEAN CORPUSCULAR HEMOGLOBIN 29.9 pg (28.0-32.0); MEAN CORPUSCULAR VOLUME 89.6 fL (80.0-94.0); PLATELET 260 x1000/uL (130-400); RED BLOOD CELL COUNT 3.97 mill/uL (4.7-6.1); RED CELL DISTRIBUTION WIDTH 14.5 % (11.6-14.6)
[2018-07-27] MEDS: HYDRALAZINE HCL 25MG TABLET PO SCH ×3 (07:46→22:00)
[2018-07-27] MEDS: AMLODIPINE 5MG TABLET NG SCH ×2 (09:00→21:41)
[2018-07-27] MEDS: LEVOFLOXACIN 250MG PREMIX 50 ML IV SCH (09:00)
[2018-07-27] MEDS: LEVETIRACETAM 500MG TABLET PO SCH ×2 (09:00→21:38)
[2018-07-27] MEDS ORDERED: INSULIN GLARGINE UD 100 UNITS/ML SYR SUBCUT SCH (10:00)
[2018-07-27] MEDS: DEXAMETHASONE 4MG/ML 1ML VIAL IV SCH (12:10)
[2018-07-27] MEDS: PANTOPRAZOLE SODIUM 40 MG/VIAL IV SCH ×2 (12:10→21:42)
[2018-07-27] MEDS ORDERED: BUPIVACAINE HCL/PF 0.5% (5MG/ML) 10ML ONE (12:48)
[2018-07-27] MEDS ORDERED: LIDOCAINE HCL 1% 20ML VIAL (Pyxis) INJ ONE (12:48)
[2018-07-27] MEDS ORDERED: MIDAZOLAM HCL 2 MG/2 ML VIAL ONE (13:51)
[2018-07-27] MEDS ORDERED: ROCURONIUM BROMIDE 10MG/ML VIAL 5ML IV ONE (13:51)
[2018-07-27] MEDS: HYDROMORPHONE HCL/PF 2MG/ML CPJ IV SCH ×2 (17:08→22:00)
[2018-07-27] MEDS: CLONIDINE 0.1MG TABLET PO PRN (18:28)
[2018-07-28] VITALS (19 sets, daily range): BP systolic 132–168; BP diastolic 76–97
[2018-07-28] MEDS: HYDROMORPHONE HCL/PF 2MG/ML CPJ IV SCH ×2 (00:28→04:00)
[2018-07-28] MEDS: IPRATROPIUM/ALBUTEROL 0.5-3(2.5)MG/3ML NEB INH SCH ×4 (02:39→20:50)
[2018-07-28] MEDS: HYDRALAZINE HCL 25MG TABLET PO SCH ×3 (05:51→14:00)
[2018-07-28 07:12] LABS: HEMATOCRIT 36.5 % (42.0-52.0); MEAN CORPUSCULAR HEMOGLOBIN 30.3 pg (28.0-32.0); MEAN CORPUSCULAR VOLUME 91.8 fL (80.0-94.0); PLATELET 234 x1000/uL (130-400); RED BLOOD CELL COUNT 3.98 mill/uL (4.7-6.1); RED CELL DISTRIBUTION WIDTH 15.2 % (11.6-14.6)
[2018-07-28] MEDS: INSULIN LISPRO 100 UNITS/ML SUBCUT SCH ×4 (08:00→21:00)
[2018-07-28] MEDS: BLOOD SUGAR DIAGNOSTIC STRIP TEST SCH ×4 (08:19→21:08)
[2018-07-28] MEDS: PANTOPRAZOLE SODIUM 40 MG/VIAL IV SCH ×2 (09:25→21:10)
[2018-07-28] MEDS: LEVETIRACETAM 500MG TABLET PO SCH ×2 (09:25→21:10)
[2018-07-28] MEDS: AMLODIPINE 5MG TABLET NG SCH ×2 (09:52→20:53)
[2018-07-28] MEDS ORDERED: CEFAZOLIN 1000MG PREMIX 50 ML IV ONE (11:00)
== END 2018-07-28 21:30 | disposition short-term general hospital (02) | DRG 3 ==
LOC: ER 10:08 → MICUSO 11:12 → EDBEDREQ 11:15 → EDBEDREQTM 13:54 → EDBEDREQ 13:54 → ENRESERV 15:36 → 5EST 07-26 13:55
PROVIDERS: ADMIT Internal Medicine; ATTEND Internal Medicine
PROC: 5A1955Z Respiratory Ventilation, Greater than 96 Consecutive Hours (ICD-10-PCS; 2018-07-16)
PROC: 0BH17EZ Insertion of Endotracheal Airway into Trachea, Via Natural or Artificial Opening (ICD-10-PCS; 2018-07-16)
PROC: 009600Z Drainage of Cerebral Ventricle with Drainage Device, Open Approach (ICD-10-PCS; principal; 2018-07-17)
PROC: 00C60ZZ Extirpation of Matter from Cerebral Ventricle, Open Approach (ICD-10-PCS; 2018-07-17)
PROC: 5A1D70Z Performance of Urinary Filtration, Intermittent, Less than 6 Hours Per Day (ICD-10-PCS; 2018-07-17)
PROC: 4A103BD Monitoring of Intracranial Pressure, Percutaneous Approach (ICD-10-PCS; 2018-07-17)
PROC: 5A1D70Z Performance of Urinary Filtration, Intermittent, Less than 6 Hours Per Day (ICD-10-PCS; 2018-07-19)
PROC: 5A1D70Z Performance of Urinary Filtration, Intermittent, Less than 6 Hours Per Day (ICD-10-PCS; 2018-07-20)
PROC: 02HV33Z Insertion of Infusion Device into Superior Vena Cava, Percutaneous Approach (ICD-10-PCS; 2018-07-20)
PROC: B548ZZA Ultrasonography of Superior Vena Cava, Guidance (ICD-10-PCS; 2018-07-20)
PROC: 5A1D70Z Performance of Urinary Filtration, Intermittent, Less than 6 Hours Per Day (ICD-10-PCS; 2018-07-22)
PROC: 00P6X0Z Removal of Drainage Device from Cerebral Ventricle, External Approach (ICD-10-PCS; 2018-07-24)
PROC: 5A1D70Z Performance of Urinary Filtration, Intermittent, Less than 6 Hours Per Day (ICD-10-PCS; 2018-07-25)
PROC: 5A1D70Z Performance of Urinary Filtration, Intermittent, Less than 6 Hours Per Day (ICD-10-PCS; 2018-07-26)
PROC: 0B110F4 Bypass Trachea to Cutaneous with Tracheostomy Device, Open Approach (ICD-10-PCS; 2018-07-27)
PROC: 5A1D70Z Performance of Urinary Filtration, Intermittent, Less than 6 Hours Per Day (ICD-10-PCS; 2018-07-28)
DX: I61.3 Nontraumatic intracerebral hemorrhage in brain stem (principal); N18.6 End stage renal disease; G93.41 Metabolic encephalopathy; J96.00 Acute respiratory failure, unspecified whether with hypoxia or hypercapnia; I12.0 Hypertensive chronic kidney disease with stage 5 chronic kidney disease or end stage renal disease; G91.9 Hydrocephalus, unspecified; Z99.11 Dependence on respirator [ventilator] status; I61.5 Nontraumatic intracerebral hemorrhage, intraventricular; E11.22 Type 2 diabetes mellitus with diabetic chronic kidney disease; D63.8 Anemia in other chronic diseases classified elsewhere; E87.5 Hyperkalemia; E11.65 Type 2 diabetes mellitus with hyperglycemia; J32.0 Chronic maxillary sinusitis; W19.XXXA Unspecified fall, initial encounter; R47.02 Dysphasia; Z86.73 Personal history of transient ischemic attack (TIA), and cerebral infarction without residual deficits; Z99.2 Dependence on renal dialysis; Z79.84 Long term (current) use of oral hypoglycemic drugs; Y93.89 Activity, other specified; Y92.89 Other specified places as the place of occurrence of the external cause; Y99.8 Other external cause status; Z78.1 Physical restraint status
CPT/HCPCS: 31500; 36415; 36569; 36600; 71045; 76937; 80048; 80061; 80202; 80305; 80320; 82375; 82805; 82962; 83036; 83721; 84132; 84439; 84443; 84484; 85027; 87070; 87077; 87186; 93005; 93306; 93970; 94003; 94640; 96374; 96375; 99291; A6261; C1725; C9113; J0690; J1100; J1170; J1815; J1953; J1956; J2250; J2270; J2543; J2704; J3370; J3490; J7050; J7060; J7121; J7620; G0480